=== PATIENT | male | born 1995 | race Caucasian/White ===

== ENCOUNTER 2017-01-16 08:01 | Emergency (ER) | payer OTHER ==
[~2017-01-16] VITALS: Ht 182.9 cm; Wt 106.6 kg
[2017-01-16] MEDS ORDERED: LIDOCAINE 2% MDV 20 ML VIAL SC ONE (09:00)
[2017-01-16] MEDS ORDERED: ceFAZolin 1GM INJ (J0690) IM ONE (09:00)
[2017-01-16] MEDS ORDERED: ADACEL/BOOSTRIX VACCINE (DIPHTH/PERTUSS/ACELL/TETANUS)0.5ML SYR (90715) IM ONE (09:00)
[2017-01-16] MEDS ORDERED: NORCO, ANEXSIA 5/325MG TABLET (HYDROcodone/ACETAMINOPHEN) PO ONE (09:00)
--- NOTE | 2017-01-16 09:21 | REP ---
RIGHT HAND, FOUR VIEWS: There is no evidence of an acute fracture, dislocation or intrinsic bone disease. IMPRESSION: No fracture or dislocation. Signed by Giuliano Nicole MD 01/16/2017 04:21 P
[2017-01-16] MEDS ORDERED: ceFAZolin SOD 1 GM in D5W MINI-BAG PLUS 50 ML IV ONE (09:45)
[2017-01-16] MEDS ORDERED: KEFL500C7 PO (11:10)
[2017-01-16] MEDS ORDERED: NORCOTAB PO (11:10)
[2017-01-16] MEDS ORDERED: MORPHINE 4 MG/ML 1ML SYRINGE IV ONE (11:15)
[2017-01-16] MEDS ORDERED: ONDANSETRON 4MG/2ML VIAL (J2405) IV ONE (11:15)
[2017-01-16 11:36] VITALS: BP 166/86
== END 2017-01-16 11:44 | disposition home or self-care (01) ==
LOC: M ED 08:59
DX: S60.221A Contusion of right hand, initial encounter (principal); S61.216A Laceration without foreign body of right little finger without damage to nail, initial encounter; W23.0XXA Caught, crushed, jammed, or pinched between moving objects, initial encounter; Y92.89 Other specified places as the place of occurrence of the external cause; Y93.89 Activity, other specified; Y99.0 Civilian activity done for income or pay; R20.9 Unspecified disturbances of skin sensation; F17.210 Nicotine dependence, cigarettes, uncomplicated
CPT/HCPCS: 12002; 12032; 73130; 90471; 90715; 96374; 96375; 99283; J2405

== ENCOUNTER 2017-01-30 08:08 | Emergency (ER) | payer OTHER ==
[~2017-01-30] VITALS: Ht 182.9 cm; Wt 122.5 kg
[~2017-01-30 08:08] MED LIST: KEFL500C7 PO; NORCOTAB PO
[2017-01-30 09:48] VITALS: BP 149/73
== END 2017-01-30 09:49 | disposition home or self-care (01) ==
LOC: M ED 09:32
DX: Z48.02 Encounter for removal of sutures (principal); F17.200 Nicotine dependence, unspecified, uncomplicated

== ENCOUNTER 2022-10-26 10:39 | Emergency (ER) | payer SELFPAY ==
[~2022-10-26] VITALS: Ht 182.9 cm; Wt 100.7 kg
[~2022-10-26 10:39] MED LIST changes: +HYDR-3715 PO; +KEFL500C17 PO; -KEFL500C7 PO; -NORCOTAB PO
[2022-10-26 10:40] VITALS: BP 166/92
[2022-10-26] MEDS ORDERED: OXYC1TAB23 PO (10:47)
[2022-10-26 13:26] LABS: GC DNA AMPLIFICATION NEGATIVE (NEGATIVE)
== END 2022-10-26 13:14 | disposition left against medical advice (07) ==
LOC: M ED 10:39
DX: Z53.21 Procedure and treatment not carried out due to patient leaving prior to being seen by health care provider (principal)

== ENCOUNTER 2022-12-18 16:04 | Inpatient (IN) | payer MEDICAID, SELFPAY ==
[~2022-12-18] VITALS: Ht 180.3 cm; Wt 103.1 kg
[~2022-12-18 16:04] MED LIST changes: +OXYC1TAB23 PO
[2022-12-18 17:19] LABS: HEMATOCRIT 45.2 % (42.0-52.0); HEMOGLOBIN 14.9 g/dl (13.5-17.5); MEAN CORPUSCULAR HEMOGLOBIN 31.1 pg (27.0-33.0); MEAN CORPUSCULAR VOLUME 94.4 fl (80.0-96.0); PLATELET COUNT, AUTOMATED 203 10^3/uL (150-450); RED BLOOD COUNT 4.79 10^6/uL (4.30-6.10); WHITE BLOOD COUNT 9.2 10^3/uL (4.0-10.0)
[2022-12-18 17:32] LABS: ETHYL ALCOHOL (ETHANOL) 0.007 % (0.000-0.010)
[2022-12-18 17:34] LABS: ACETAMINOPHEN LEVEL 2.2 UG/ML (10.0-20.0); ALBUMIN 4.2 G/DL (3.2-5.2); ALKALINE PHOSPHATASE 68 U/L (46-116); ALT/SGPT 24 U/L (7.0-40); AST/SGOT 19 U/L (<34); BILIRUBIN,DIRECT 0.3 MG/DL (<0.4); BILIRUBIN,TOTAL 0.9 MG/DL (0.3-1.2); BLOOD UREA NITROGEN 17 MG/DL (9-23); CALCIUM LEVEL 9.5 MG/DL (8.5-10.1); CARBON DIOXIDE LEVEL 23 MMOL/L (20-31); CHLORIDE LEVEL 107 MMOL/L (98-107); CREATININE FOR GFR 0.74 MG/DL (0.70-1.30); GLOMERULAR FILTRATION RATE > 60.0 (>60); GLUCOSE, FASTING 91 MG/DL (60-100); POTASSIUM SERUM 4.4 MMOL/L (3.5-5.1); SALICYLATE LEVEL < 3.0 MG/DL (<30); SODIUM LEVEL 138 MMOL/L (136-145); TOTAL PROTEIN 7.3 G/DL (5.7-8.2)
[2022-12-18 17:36] LABS: THYROID STIMULATING HORMONE 0.227 uIU/ML (0.55-4.78)
[2022-12-18 18:06] LABS: BARBITURATES URINE NEGATIVE (NEGATIVE); BENZODIAZEPINES URINE NEGATIVE (NEGATIVE); COCAINE METABOLITE URINE NEGATIVE (NEGATIVE); METHADONE URINE NEGATIVE (NEGATIVE); PHENCYCLIDINE URINE NEGATIVE (NEGATIVE)
[2022-12-18 18:07] LABS: AMPHETAMINES LEVEL URINE POSITIVE (NEGATIVE); CANNABINOIDS URINE POSITIVE (NEGATIVE); OPIATES URINE POSITIVE (NEGATIVE)
[2022-12-18] MEDS ORDERED: HOME MED LIST COMPLETE! XX SCH (18:30)
[2022-12-19] MEDS: NICOTINE 21MG/24HR 1 EA TRANSDERMAL TD SCH (09:00)
[2022-12-19] MEDS ORDERED: NICOTINE 21MG/24HR 1 EA TRANSDERMAL TD ONE (10:30)
[2022-12-19] MEDS ORDERED: diphenhydrAMINE 25MG CAP PO PRN (11:40)
[2022-12-19] MEDS ORDERED: MOM 30ML SUSPENSION UDC PO PRN (11:40)
[2022-12-19] MEDS ORDERED: IBUPROFEN 400MG TAB PO PRN (11:40)
[2022-12-19] MEDS ORDERED: MAALOX 30 ML SUSP *UDC PO PRN (11:40)
[2022-12-19 15:31] VITALS: BP 142/82
[2022-12-19] MEDS: traZODone 50 MG TAB PO PRN (22:13)
[2022-12-20 06:18] VITALS: BP 142/72
[2022-12-20] MEDS: NICOTINE 21MG/24HR 1 EA TRANSDERMAL TD SCH (08:26)
[2022-12-20] MEDS ORDERED: CYCLOBENZAPRINE 5MG TABLET PO PRN (10:20)
[2022-12-20] MEDS ORDERED: IBUPROFEN 600MG TAB PO PRN (10:20)
[2022-12-20] MEDS ORDERED: ONDANSETRON 4MG ORAL DISINTEGRATING TAB PO PRN (10:20)
[2022-12-20] MEDS ORDERED: LORazepam 0.5 MG TAB PO PRN (10:20)
[2022-12-20] MEDS: cloNIDine 0.1MG TABLET PO SCH ×2 (11:15→20:22)
[2022-12-20 16:25] VITALS: BP 140/78
[2022-12-21 06:29] VITALS: BP 116/61
[2022-12-21] MEDS: NICOTINE 21MG/24HR 1 EA TRANSDERMAL TD SCH (08:22)
[2022-12-21] MEDS: cloNIDine 0.1MG TABLET PO SCH ×2 (08:25→20:08)
[2022-12-21] MEDS ORDERED: CYCL5TAB PO (10:43)
[2022-12-21] MEDS ORDERED: CLONI1TA PO (10:43)
[2022-12-21] MEDS ORDERED: SERT50TA29 PO (10:43)
[2022-12-21] MEDS ORDERED: NICO21PAT TD (10:43)
[2022-12-21 19:04] VITALS: BP 165/77
[2022-12-21] MEDS: traZODone 50 MG TAB PO PRN (20:08)
[2022-12-21] MEDS ORDERED: SERTRALINE HCL 50 MG TAB PO SCH (21:00)
[2022-12-22 06:31] VITALS: BP 135/73
[2022-12-22 08:01] VITALS: BP 128/68
[2022-12-22] MEDS: NICOTINE 21MG/24HR 1 EA TRANSDERMAL TD SCH (08:01)
[2022-12-22] MEDS: cloNIDine 0.1MG TABLET PO SCH (08:01)
== END 2022-12-22 10:44 | disposition home or self-care (01) | DRG 754 ==
LOC: M ED 16:04 → M ED INP 12-19 11:39 → M PSY 12-19 15:31
PROVIDERS: ADMIT Student in an Organized Health Care Education/Training Program; ATTEND Psychiatry & Neurology Psychiatry
DX: F32.9 Major depressive disorder, single episode, unspecified (principal); R45.851 Suicidal ideations; F11.10 Opioid abuse, uncomplicated; F12.10 Cannabis abuse, uncomplicated; F60.3 Borderline personality disorder; F15.14 Other stimulant abuse with stimulant-induced mood disorder; F17.200 Nicotine dependence, unspecified, uncomplicated; Z56.0 Unemployment, unspecified; Z63.0 Problems in relationship with spouse or partner

== ENCOUNTER 2023-02-15 19:11 | Emergency (ER) | payer MEDICAID, OTHER ==
[2023-02-15 19:11] VITALS: BP 147/73
[~2023-02-15 19:11] MED LIST changes: +CLONI1TA PO; +CYCL5TAB PO; +NICO21PAT TD; +SERT50TA29 PO
[2023-02-15] MEDS ORDERED: BUSP10TA (19:22)
[2023-02-15] MEDS ORDERED: BUPR1FIL (19:22)
[2023-02-15] MEDS ORDERED: BOOSTRIX VACCINE (TETANUS/DIPHTH/ACEL. PERTUSSIS) 0.5ML SYR IM ONE (20:05)
[2023-02-15] MEDS ORDERED: LIDOCAINE W/EPINEPHRINE 1% 20ML VIAL SC ONE (20:05)
[2023-02-15] MEDS ORDERED: IBUPROFEN 600MG TAB PO ONE (20:20)
[2023-02-15] MEDS ORDERED: CEPHALEXIN 500 MG CAP PO ONE (20:40)
[2023-02-15] MEDS ORDERED: CEPH500C PO (21:03)
== END 2023-02-15 21:21 | disposition home or self-care (01) ==
LOC: M ED 19:11
DX: S91.311A Laceration without foreign body, right foot, initial encounter (principal); Y28.9XXA Contact with unspecified sharp object, undetermined intent, initial encounter; Y92.009 Unspecified place in unspecified non-institutional (private) residence as the place of occurrence of the external cause; Y93.01 Activity, walking, marching and hiking; Y99.8 Other external cause status; F90.9 Attention-deficit hyperactivity disorder, unspecified type; F91.3 Oppositional defiant disorder; F31.9 Bipolar disorder, unspecified

== ENCOUNTER 2023-05-12 17:11 | Emergency (ER) | payer OTHER ==
[~2023-05-12 17:11] MED LIST changes: +BUPR1FIL; +BUSP10TA; +CEPH500C PO
[2023-05-12 17:31] VITALS: TEMP 97.2
[2023-05-12] MEDS ORDERED: BUPR1FIL37 SL (18:01)
[2023-05-12] MEDS ORDERED: EFFE150C2 PO (18:01)
[2023-05-12] MEDS ORDERED: COLA100C5 PO (18:01)
[2023-05-12 18:13] LABS: HEMATOCRIT 45.6 % (42.0-52.0); HEMOGLOBIN 15.2 g/dl (13.5-17.5); MEAN CORPUSCULAR HEMOGLOBIN 30.6 pg (27.0-33.0); MEAN CORPUSCULAR HGB CONC 33.3 g/dl (32.0-36.5); MEAN CORPUSCULAR VOLUME 91.9 fl (80.0-96.0); PLATELET COUNT, AUTOMATED 202 10^3/uL (150-450); RED BLOOD COUNT 4.96 10^6/uL (4.30-6.10); WHITE BLOOD COUNT 7.8 10^3/uL (4.0-10.0)
[2023-05-12 18:37] LABS: AMPHETAMINES LEVEL URINE NEGATIVE (NEGATIVE); BARBITURATES URINE NEGATIVE (NEGATIVE); BENZODIAZEPINES URINE NEGATIVE (NEGATIVE); COCAINE METABOLITE URINE NEGATIVE (NEGATIVE); METHADONE URINE NEGATIVE (NEGATIVE); OPIATES URINE NEGATIVE (NEGATIVE); PHENCYCLIDINE URINE NEGATIVE (NEGATIVE)
[2023-05-12 18:39] LABS: CANNABINOIDS URINE POSITIVE (NEGATIVE); ETHYL ALCOHOL (ETHANOL) < 0.003 % (0.000-0.010)
[2023-05-12 18:40] LABS: ACETAMINOPHEN LEVEL < 2.0 UG/ML (10.0-20.0); SALICYLATE LEVEL < 3.0 MG/DL (<30)
[2023-05-12 18:41] LABS: ALBUMIN 4.1 G/DL (3.2-5.2); ALKALINE PHOSPHATASE 71 U/L (46-116); ALT/SGPT 20 U/L (7.0-40); AST/SGOT 13 U/L (<34); BILIRUBIN,DIRECT 0.2 MG/DL (<0.4); BILIRUBIN,TOTAL 0.6 MG/DL (0.3-1.2); BLOOD UREA NITROGEN 16 MG/DL (9-23); CALCIUM LEVEL 9.5 MG/DL (8.5-10.1); CARBON DIOXIDE LEVEL 26 MMOL/L (20-31); CHLORIDE LEVEL 109 MMOL/L (98-107); CREATININE FOR GFR 0.76 MG/DL (0.70-1.30); GLOMERULAR FILTRATION RATE > 60.0 (>60); GLUCOSE, FASTING 94 MG/DL (60-100); POTASSIUM SERUM 4.8 MMOL/L (3.5-5.1); SODIUM LEVEL 141 MMOL/L (136-145); TOTAL PROTEIN 6.9 G/DL (5.7-8.2)
[2023-05-12 18:43] LABS: THYROID STIMULATING HORMONE 0.563 uIU/ML (0.55-4.78)
[2023-05-12 20:19] VITALS: BP 138/84; O2SAT 99
== END 2023-05-12 20:21 | disposition home or self-care (01) ==
LOC: M ED 17:11
DX: Z04.6 Encounter for general psychiatric examination, requested by authority (principal); F19.10 Other psychoactive substance abuse, uncomplicated; F32.A Depression, unspecified; M54.9 Dorsalgia, unspecified; F17.200 Nicotine dependence, unspecified, uncomplicated; Z79.899 Other long term (current) drug therapy

== ENCOUNTER → 2024-01-19 | Outpatient (CLI) | payer OTHER ==
[~2024-01-19] MED LIST changes: +BUPR1FIL37 SL; +COLA100C5 PO; +EFFE150C3 PO
[2024-01-19 10:42] LABS: BASO # 0.1 10^3/uL (0.0-0.2); BASO % 1.4 % (0.0-1.0); EOS # 0.5 10^3/uL (0.0-0.5); EOS % 8.5 % (0.0-3.0); HEMATOCRIT 44.9 % (42.0-52.0); HEMOGLOBIN 14.6 g/dl (13.5-17.5); LYMPH # 2.4 10^3/uL (1.5-5.0); LYMPH % 41.7 % (24.0-44.0); MEAN CORPUSCULAR HEMOGLOBIN 30.4 pg (27.0-33.0); MEAN CORPUSCULAR HGB CONC 32.5 g/dl (32.0-36.5); MEAN CORPUSCULAR VOLUME 93.5 fl (80.0-96.0); MONO # 0.5 10^3/uL (0.0-0.8); MONO % 8.8 % (2.0-8.0); NEUTROPHILS # 2.2 10^3/uL (1.5-8.5); NEUTROPHILS % 39.4 % (36.0-66.0); PLATELET COUNT, AUTOMATED 183 10^3/uL (150-450); WHITE BLOOD COUNT 5.7 10^3/uL (4.0-10.0)
[2024-01-19 10:54] LABS: HEMOGLOBIN A1c 5.4 % (4.0-6.0)
[2024-01-19 11:14] LABS: ALBUMIN 3.9 G/DL (3.2-5.2); ALKALINE PHOSPHATASE 82 U/L (46-116); ALT/SGPT 24 U/L (7.0-40); AST/SGOT 23 U/L (<34); BILIRUBIN,TOTAL 0.7 MG/DL (0.3-1.2); BLOOD UREA NITROGEN 20 MG/DL (9-23); CALCIUM LEVEL 9.6 MG/DL (8.5-10.1); CARBON DIOXIDE LEVEL 30 MMOL/L (20-31); CHLORIDE LEVEL 106 MMOL/L (98-107); CHOLESTEROL LEVEL 155 MG/DL (<200); CHOLESTEROL RISK RATIO 3.56 (<5); CREATININE FOR GFR 0.82 MG/DL (0.70-1.30); GLOMERULAR FILTRATION RATE > 60.0 (>60); GLUCOSE, FASTING 100 MG/DL (60-100); HDL CHOLESTEROL 43.5 MG/DL (>40); LDL CHOLESTEROL 99.5 MG/DL (<100); NON-HDL-C 111.5 MG/DL; POTASSIUM SERUM 4.8 MMOL/L (3.5-5.1); SODIUM LEVEL 139 MMOL/L (136-145); TOTAL PROTEIN 6.9 G/DL (5.7-8.2); TRIGLYCERIDES LEVEL 60 MG/DL (<150)
[2024-01-19 11:16] LABS: THYROID STIMULATING HORMONE 0.773 uIU/ML (0.55-4.78); TOTAL 25(OH) VITAMIN D 28.4 NG/ML (20.0-100.0)
[2024-01-19 11:21] LABS: TESTOSTERONE 391 NG/DL (241-827)
== END ==
LOC: M LAB 10:22
PROVIDERS: ATTEND Registered Nurse Psychiatric/Mental Health
DX: Z79.899 Other long term (current) drug therapy (principal)